=== PATIENT | female | born 1965 | race Two or more races ===

== ENCOUNTER 2019-07-25 16:32 | Emergency (ER) | payer BC ==
[~2019-07-25] VITALS: Ht 162.6 cm; Wt 113.4 kg
[2019-07-25 18:05] LABS: Basophils # (auto) 0 uL; Basophils % (auto) 0.4 % (0.0-2.0); Eosinophils # (auto) 0.2 uL; Eosinophils % (auto) 3.4 % (0.0-7.0); Hematocrit 43.9 % (36.0-46.0); Hemoglobin 14.3 g/dL (12.2-16.2); Lymphocytes # (auto) 0.8 uL; Lymphocytes % (auto) 14.6 % (10.0-50.0); Mean Corpuscular Hemoglobin 29.6 pg (28.0-32.0); Mean Corpuscular Hgb Conc. 32.6 g/dL (32.0-36.0); Mean Corpuscular Volume 90.8 fL (80.0-100.0); Monocytes # (auto) 0.5 uL; Monocytes % (auto) 8.4 % (0.0-12.0); Neutrophils % (auto) 73.2 % (37.0-80.0); Nucleated Red Blood Cells % 0.1 %; Platelet Count (auto) 200 10^3/uL (140-450); Red Blood Cells 4.83 10^6/uL (4.0-5.20); Red Cell Distribution Width 15.1 % (11.8-14.3); White Blood Cell 5.5 10^3/uL (4.4-10.8)
[2019-07-25 18:15] LABS: INR 2.35 (0.9-1.15)
[2019-07-25 18:29] LABS: Alanine Aminotransferase 26 U/L (13-56); Albumin 3.5 g/dL (3.4-5.0); Anion Gap 6 (5-15); Aspartate Aminotransferase 27 U/L (15-37); BUN/Creatinine Ratio 13.2; Blood Urea Nitrogen 12 mg/dL (7-18); Calcium 8.7 mg/dL (8.5-10.1); Carbon Dioxide 31 mmol/L (21-32); Chloride 106 mmol/L (98-107); GFR African American 83 mL/min; GFR Non-African American 69 mL/min; Glucose 95 mg/dL (74-106); Magnesium 1.9 mg/dL (1.6-2.6); Sodium 143 mmol/L (136-145)
[2019-07-25 18:31] LABS: Urine Bacteria FEW /hpf (None Seen); Urine Blood 1+ /uL (Negative); Urine Hyaline Cast FEW /lpf (0 - 2); Urine Mucus FEW (None Seen); Urine Specific Gravity 1.019 (1.001-1.035); Urine WBC 55 /hpf (0 - 5)
[2019-07-25 18:34] LABS: Alkaline Phosphatase 102 U/L (45-117); Bilirubin, Total 0.5 mg/dL (0.2-1.0); Total Protein 8.2 g/dL (6.4-8.2)
[2019-07-25] MEDS ORDERED: SODIUM CHLORIDE 0.9% 1,000 ML IV ONE (18:45)
[2019-07-25] MEDS ORDERED: ONDANSETRON HCL 4 MG/2 ML VIAL IV ONE (18:45)
[2019-07-25] MEDS ORDERED: cefTRIAXone 1GM/50ML D5W 50 ML IV ONE (19:15)
[2019-07-25 20:33] VITALS: BP 105/35
== END 2019-07-25 20:50 | disposition home or self-care (01) ==
LOC: ER 16:32
DX: N39.0 Urinary tract infection, site not specified (principal); R11.2 Nausea with vomiting, unspecified; I10 Essential (primary) hypertension; Z86.73 Personal history of transient ischemic attack (TIA), and cerebral infarction without residual deficits; Z90.710 Acquired absence of both cervix and uterus; Z88.8 Allergy status to other drugs, medicaments and biological substances; Z91.040 Latex allergy status
CPT/HCPCS: 36415; 70450; 71046; 80053; 81001; 83690; 83735; 84484; 85025; 85610; 96361; 96365; 96375; 99284; J0696; J2405; J7030

== ENCOUNTER 2019-12-31 08:15 | Emergency (ER) | payer BC ==
[~2019-12-31] VITALS: Ht 160 cm; Wt 113.4 kg
[2019-12-31] MEDS ORDERED: IBUPROFEN 600 MG TAB PO ONE (08:45)
[2019-12-31 10:01] LABS: Basophils # (auto) 0 uL; Basophils % (auto) 0.2 % (0.0-2.0); Eosinophils # (auto) 0.1 uL; Eosinophils % (auto) 0.7 % (0.0-7.0); Hemoglobin 14.1 g/dL (12.2-16.2); Lymphocytes # (auto) 0.4 uL; Lymphocytes % (auto) 3.4 % (10.0-50.0); Mean Corpuscular Hemoglobin 30.1 pg (28.0-32.0); Mean Corpuscular Hgb Conc. 33.5 g/dL (32.0-36.0); Mean Corpuscular Volume 89.7 fL (80.0-100.0); Monocytes # (auto) 0.7 uL; Monocytes % (auto) 5.7 % (0.0-12.0); Neutrophils # (auto) 10.7 uL; Platelet Count (auto) 175 10^3/uL (140-450); Red Blood Cells 4.68 10^6/uL (4.0-5.20); Red Cell Distribution Width 14.9 % (11.8-14.3); White Blood Cell 11.9 10^3/uL (4.4-10.8)
[2019-12-31 10:17] LABS: Albumin 3.6 g/dL (3.4-5.0); Anion Gap 6 (5-15); Blood Urea Nitrogen 14 mg/dL (7-18); Calcium 8.9 mg/dL (8.5-10.1); Carbon Dioxide 28 mmol/L (21-32); Chloride 107 mmol/L (98-107); Glucose 105 mg/dL (74-106); Sodium 141 mmol/L (136-145)
[2019-12-31 10:20] LABS: Urine Bacteria NONE SEEN /hpf (None Seen); Urine Blood 3+ /uL (Negative); Urine Specific Gravity 1.015 (1.001-1.035); Urine WBC 405 /hpf (0 - 5); Urine WBC Clumps PRESENT /hpf (None Seen)
[2019-12-31 10:23] LABS: Alanine Aminotransferase 23 U/L (13-56); Alkaline Phosphatase 93 U/L (45-117); Aspartate Aminotransferase 28 U/L (15-37); BUN/Creatinine Ratio 18.4; Bilirubin, Total 0.5 mg/dL (0.2-1.0); GFR African American 102 mL/min; GFR Non-African American 84 mL/min
[2019-12-31] MEDS ORDERED: SODIUM CHLORIDE 0.9% 1,000 ML IV ONE (10:39)
[2019-12-31] MEDS ORDERED: HYDROmorphone HCL 2 MG/ML VL IV ONE (10:45)
[2019-12-31] MEDS ORDERED: PROMETHAZINE HCL 25 MG/ML 1ML IV PRN (10:45)
[2019-12-31] MEDS ORDERED: IOHEXOL 300 MG/ML 100ML BOTTLE IJ ONE (10:48)
[2019-12-31 11:17] LABS: Magnesium 1.7 mg/dL (1.6-2.6)
[2019-12-31 11:26] LABS: INR 3.71 (0.9-1.15); Partial Thromboplastin Time 48.5 sec (23.64-32.05)
[2019-12-31 12:49] VITALS: BP 166/41
[2019-12-31] MEDS ORDERED: cefTRIAXone SOD 1,000 MG VL ONE (13:54)
[2019-12-31] MEDS ORDERED: cefTRIAXone 1GM/50ML D5W 50 ML IV ONE (14:00)
[2019-12-31] MEDS ORDERED: ONDANSETRON ODT 4 MG TAB PO ONE ×2 (14:20→14:30)
== END 2019-12-31 14:23 | disposition home or self-care (01) ==
LOC: ER 08:15
DX: T45.511A Poisoning by anticoagulants, accidental (unintentional), initial encounter (principal); N20.0 Calculus of kidney; N39.0 Urinary tract infection, site not specified; K62.5 Hemorrhage of anus and rectum; M19.90 Unspecified osteoarthritis, unspecified site; Z95.4 Presence of other heart-valve replacement; Z91.040 Latex allergy status; Z86.73 Personal history of transient ischemic attack (TIA), and cerebral infarction without residual deficits; Z90.710 Acquired absence of both cervix and uterus; Y92.89 Other specified places as the place of occurrence of the external cause
CPT/HCPCS: 36415; 71046; 74177; 80053; 81001; 83690; 83735; 84484; 85025; 85610; 85730; 93005; 96365; 96375; 99284; J0696; J1170; J2550; J7030; Q0162; Q9967

== ENCOUNTER 2020-01-29 14:06 | Emergency (ER) | payer BC ==
[~2020-01-29] VITALS: Ht 162.6 cm; Wt 109.8 kg
[2020-01-29 15:47] VITALS: BP 136/67
[2020-01-29] MEDS ORDERED: ACETAMINOPHEN 325 MG TAB PO ONE (17:00)
== END 2020-01-29 18:01 | disposition home or self-care (01) ==
LOC: ER 14:08
DX: S93.401A Sprain of unspecified ligament of right ankle, initial encounter (principal); M79.642 Pain in left hand; I10 Essential (primary) hypertension; M19.90 Unspecified osteoarthritis, unspecified site; Z86.73 Personal history of transient ischemic attack (TIA), and cerebral infarction without residual deficits; Z90.710 Acquired absence of both cervix and uterus; Z91.040 Latex allergy status; Z88.8 Allergy status to other drugs, medicaments and biological substances; W19.XXXA Unspecified fall, initial encounter; Y93.89 Activity, other specified; Y99.8 Other external cause status; Y92.511 Restaurant or cafe as the place of occurrence of the external cause
CPT/HCPCS: 73130; 73610

== ENCOUNTER 2020-11-21 09:39 | Inpatient (IN) | payer BC ==
[~2020-11-21] VITALS: Ht 162.6 cm; Wt 109.7 kg
[2020-11-21] MEDS ORDERED: MIDAZOLAM DRIP 50 mg/50mL 50 ML IV ONE (09:44)
[2020-11-21] MEDS: MIDAZOLAM DRIP 50 mg/50mL 50 ML IV SCH (11:00)
[2020-11-21] MEDS ORDERED: fentaNYL Drip 2500mCg/250mlNS 250 ML IV ONE (11:14)
[2020-11-21] MEDS ORDERED: NOREPINEPHRINE 8 MG/250ML KIT 250 ML IV ONE ×2 (11:31→12:36)
[2020-11-21 11:37] VITALS: BP 115/65
[2020-11-21] MEDS: fentaNYL Drip 2500mCg/250mlNS 250 ML IV SCH (11:37)
[2020-11-21] MEDS ORDERED: cefTRIAXone 1GM/50ML D5W 50 ML IV ONE ×2 (11:51→12:00)
[2020-11-21] MEDS ORDERED: AZITHROMYCIN 500MG/ 250ML 250 ML IV ONE ×2 (11:51→12:00)
[2020-11-21] MEDS ORDERED: DexAMETHasone SOD PHOS 10MG/1ML VIAL INJ ONE (11:52)
[2020-11-21 11:55] LABS: Hematocrit 34.1 % (36.0-46.0); Hemoglobin 11.4 g/dL (12.2-16.2); Mean Corpuscular Hemoglobin 30.5 pg (28.0-32.0); Mean Corpuscular Hgb Conc. 33.3 g/dL (32.0-36.0); Mean Corpuscular Volume 91.7 fL (80.0-100.0); Platelet Count (auto) 340 10^3/uL (140-450); Red Blood Cells 3.73 10^6/uL (4.0-5.20); Red Cell Distribution Width 14.9 % (11.8-14.3); White Blood Cell 15.9 10^3/uL (4.4-10.8)
[2020-11-21] MEDS ORDERED: DexAMETHasone SOD PHOS 10MG/1ML VIAL INJ IV ONE (12:00)
[2020-11-21 12:10] LABS: Basophils % (manual) 0 (0.0-2.0); Blast Cells 0; Eosinophils % (manual) 0 (0-7); Promyelocytes % 0; Reactive Lymphocytes 0
[2020-11-21 12:14] LABS: Partial Thromboplastin Time 57.6 sec (23.0-31.2)
[2020-11-21 12:20] LABS: INR > 8.0 (0.9-1.15)
[2020-11-21 12:30] LABS: Lactic Acid w/Reflex 2.8 mmol/L (0.4-2.0)
[2020-11-21 13:09] LABS: Albumin 2.1 g/dL (3.4-5.0); Calcium 7.4 mg/dL (8.5-10.1); Magnesium 1.8 mg/dL (1.6-2.6); Potassium 3.4 mmol/L (3.5-5.1)
[2020-11-21 13:19] LABS: Urine WBC None Seen /hpf (0 - 5)
[2020-11-21 13:22] LABS: BUN/Creatinine Ratio 12.7; Bilirubin, Total 0.4 mg/dL (0.2-1.0); Total Protein 6.4 g/dL (6.4-8.2)
[2020-11-21] MEDS ORDERED: MORPHINE SULF INJ 2 MG/ML SYRINGE 1ML IV PRN ×2 (13:30→14:00)
[2020-11-21] MEDS ORDERED: NITROGLYCERIN 0.4 MG SL TAB SL PRN (13:30)
[2020-11-21 13:35] LABS: Urine Amorphous Crystal FEW /hpf (None Seen); Urine Bacteria FEW /hpf (None Seen); Urine Blood 2+ /uL (Negative); Urine Mucus FEW (None Seen); Urine Specific Gravity 1.009 (1.001-1.035)
[2020-11-21] MEDS: NOREPINEPHRINE 8 MG/250ML KIT 250 ML IV SCH (13:40)
[2020-11-21] MEDS: POTASSIUM CHL 20MEQ/100ML 100 ML IV SCH ×2 (14:00→14:09)
[2020-11-21] MEDS ORDERED: REMDESIVIR PER PHARMACY 0 ML IV SCH (14:00)
[2020-11-21] MEDS ORDERED: ALBUTEROL SULF HFA 90MCG INH 200DOSE IN PRN (14:00)
[2020-11-21 14:05] LABS: Band Neutrophils % (manual) 10; Lymphocytes % (manual) 3 (10.0-50.0); Metamyelocytes % 4; Monocytes % (manual) 4 (0-12); Myelocytes % 1
[2020-11-21] MEDS: FAMOTIDINE (10MG/ML) 2ML VL IV SCH (14:12)
[2020-11-21] MEDS: CLINDAMYCIN 600MG IV 50 ML IV SCH ×2 (14:13→21:54)
[2020-11-21] MEDS ORDERED: POTASSIUM CHLORIDE 60 MEQ, LIDOCAINE 1% (LOCAL ANESTH.) 6 ML in SODIUM CHL 0.9% 500 ML IV ONE (14:15)
[2020-11-21 17:15] VITALS: BP 121/75
[2020-11-21 17:30] VITALS: BP 127/80
[2020-11-21 18:10] VITALS: BP 124/78
[2020-11-21 18:45] VITALS: BP 125/82
[2020-11-21 19:35] LABS: Alcohol, Urine < 3.0 mg/dL (0-10); Amphetamine Screen, Urine NEGATIVE (NEGATIVE); Barbiturate Scree,Urine NEGATIVE (NEGATIVE); Benzodiazephine Screen, Urine POSITIVE (NEGATIVE); Cannabinoid Screen, Urine NEGATIVE (NEGATIVE); Cocaine Screen, Urine NEGATIVE (NEGATIVE); Opiate Scree,Urine NEGATIVE (NEGATIVE); Phencyclidine Screen, Urine NEGATIVE (NEGATIVE)
[2020-11-21 19:51] VITALS: BP 126/77
[2020-11-21] MEDS ORDERED: ENOXAPARIN SOD 40 MG/0.4 ML SYRINGE SC SCH (22:00)
[2020-11-21] MEDS: BUDESONIDE (INHALATION) 180 MCG IH IN SCH (22:00)
[2020-11-22] VITALS (8 sets, daily range): BP systolic 105–136; BP diastolic 55–78
[2020-11-22] MEDS ORDERED: DOPamine 1600MCG/ML D5W 250 ML IV ONE (01:36)
[2020-11-22] MEDS: DOPamine 1600MCG/ML D5W 250 ML IV SCH ×2 (01:42→14:14)
[2020-11-22] MEDS: MIDAZOLAM DRIP 50 mg/50mL 50 ML IV SCH (01:43)
[2020-11-22] MEDS: FAMOTIDINE (10MG/ML) 2ML VL IV SCH (02:15)
[2020-11-22 05:41] LABS: Hematocrit 34.9 % (36.0-46.0); Hemoglobin 11.5 g/dL (12.2-16.2); Mean Corpuscular Hemoglobin 29.9 pg (28.0-32.0); Mean Corpuscular Hgb Conc. 33.1 g/dL (32.0-36.0); Mean Corpuscular Volume 90.2 fL (80.0-100.0); Platelet Count (auto) 348 10^3/uL (140-450); Red Blood Cells 3.86 10^6/uL (4.0-5.20); Red Cell Distribution Width 15.1 % (11.8-14.3); White Blood Cell 12.6 10^3/uL (4.4-10.8)
[2020-11-22 06:07] LABS: Albumin 2.4 g/dL (3.4-5.0); Calcium 7.9 mg/dL (8.5-10.1); Potassium 4.1 mmol/L (3.5-5.1)
[2020-11-22 06:08] LABS: Band Neutrophils % (manual) 0; Basophils % (manual) 0 (0.0-2.0); Blast Cells 0; Eosinophils % (manual) 0 (0-7); Myelocytes % 0; Promyelocytes % 0; Reactive Lymphocytes 0
[2020-11-22] MEDS: CLINDAMYCIN 600MG IV 50 ML IV SCH ×3 (06:11→22:05)
[2020-11-22 06:14] LABS: BUN/Creatinine Ratio 13.1; Bilirubin, Total 0.4 mg/dL (0.2-1.0); Total Protein 7.1 g/dL (6.4-8.2)
[2020-11-22] MEDS: fentaNYL Drip 2500mCg/250mlNS 250 ML IV SCH (06:20)
[2020-11-22 09:00] LABS: Lymphocytes % (manual) 6 (10.0-50.0); Metamyelocytes % 2; Monocytes % (manual) 7 (0-12)
[2020-11-22] MEDS: BUDESONIDE (INHALATION) 180 MCG IH IN SCH ×2 (10:00→22:00)
[2020-11-22] MEDS: ZINC SULFATE 220mg CAP or TAB PO SCH (10:06)
[2020-11-22] MEDS: ASCORBIC ACID 1,000 MG TAB PO SCH (10:06)
[2020-11-22] MEDS: DexAMETHasone SOD PHOS 10MG/1ML VIAL INJ IV SCH (10:06)
[2020-11-22] MEDS: levoFLOXacin 500MG 100 ML IV SCH (10:06)
[2020-11-22] MEDS: CHOLECALCIFEROL (VITD3) 2,000 UNIT CAP PO SCH (10:07)
[2020-11-22] MEDS ORDERED: diphenhdrAMINE HCL 50 MG/1 ML VL IV PRN (10:30)
[2020-11-22 10:59] LABS: INR > 8.0 (0.9-1.15)
[2020-11-22] MEDS ORDERED: PHYTONADIONE (VIT K)10 MG/ML 1ML VIAL IV ONE (11:15)
[2020-11-22] MEDS ORDERED: PANTOPRAZOLE 40 MG/10 ML VIAL INJ IV ONE (12:30)
[2020-11-22 12:49] LABS: Amylase 60 U/L (25-115); Lipase 149 U/L (73-393)
[2020-11-22] MEDS: NOREPINEPHRINE 8 MG/250ML KIT 250 ML IV SCH (13:15)
[2020-11-22] MEDS ORDERED: AMIODARONE HCL (50 MG/ ML) 3 ML VIAL IV ONE (13:43)
[2020-11-22] MEDS ORDERED: AMIODARONE HCL 150 MG in D5W 5% 100 ML IV ONE (13:45)
[2020-11-22] MEDS ORDERED: AMIODARONE 450mg/250ml AE 250 ML IV SCH (14:00)
[2020-11-22] MEDS ORDERED: MAGNESIUM SULFATE 1GM/100ML 100 ML IV ONE (14:00)
[2020-11-22] MEDS ORDERED: EPINEPHrine HCL 1 MG/10 ML SYRG IV ONE (14:09)
[2020-11-22] MEDS ORDERED: REMDESIVIR 200 MG in NS 210ml LOADING DOSE ADULT IV ONE (15:00)
[2020-11-22] MEDS: AMIODARONE 450mg/250ml AE 250 ML IV SCH (20:18)
[2020-11-22] MEDS ORDERED: LIDOCAINE 50MG/5ML INJ 5ML SYRINGE IV ONE (21:45)
[2020-11-22 21:50] LABS: Hematocrit 32.2 % (36.0-46.0); Hemoglobin 10.6 g/dL (12.2-16.2)
[2020-11-22] MEDS: PANTOPRAZOLE 40 MG/10 ML VIAL INJ IV SCH (22:07)
[2020-11-22 22:42] LABS: Magnesium 1.8 mg/dL (1.6-2.6); Phosphorus 4.2 mg/dL (2.5-4.90)
[2020-11-23] MEDS: ATORVASTATIN 20 MG TAB PO SCH
[2020-11-23] MEDS: DOPamine 1600MCG/ML D5W 250 ML IV SCH ×2 (02:15→14:30)
[2020-11-23 03:04] LABS: Hematocrit 32.9 % (36.0-46.0); Hemoglobin 10.9 g/dL (12.2-16.2)
[2020-11-23] MEDS: fentaNYL Drip 2500mCg/250mlNS 250 ML IV SCH (03:56)
[2020-11-23] MEDS: CLINDAMYCIN 600MG IV 50 ML IV SCH ×3 (06:04→22:08)
[2020-11-23 07:16] VITALS: BP 133/72
[2020-11-23 07:23] LABS: INR 1.29 (0.9-1.15); Partial Thromboplastin Time 31.4 sec (23.0-31.2)
[2020-11-23 07:39] LABS: Albumin 2.6 g/dL (3.4-5.0); BUN/Creatinine Ratio 15.4; Bilirubin, Total 1.1 mg/dL (0.2-1.0); Calcium 8.3 mg/dL (8.5-10.1); Magnesium 1.9 mg/dL (1.6-2.6); Total Protein 7.1 g/dL (6.4-8.2)
[2020-11-23] MEDS: MIDAZOLAM DRIP 50 mg/50mL 50 ML IV SCH (08:53)
[2020-11-23] MEDS: DexAMETHasone SOD PHOS 10MG/1ML VIAL INJ IV SCH (08:54)
[2020-11-23] MEDS: levoFLOXacin 500MG 100 ML IV SCH (08:54)
[2020-11-23] MEDS: PANTOPRAZOLE 40 MG/10 ML VIAL INJ IV SCH ×2 (08:59→22:00)
[2020-11-23] MEDS: CHOLECALCIFEROL (VITD3) 2,000 UNIT CAP PO SCH (09:03)
[2020-11-23] MEDS: ZINC SULFATE 220mg CAP or TAB PO SCH (09:03)
[2020-11-23] MEDS: ASCORBIC ACID 1,000 MG TAB PO SCH (09:03)
[2020-11-23] MEDS: BUDESONIDE (INHALATION) 180 MCG IH IN SCH (10:00)
[2020-11-23 10:42] VITALS: BP 110/89
[2020-11-23] MEDS: AMIODARONE 450mg/250ml AE 250 ML IV SCH (11:00)
[2020-11-23] MEDS ORDERED: CLOPIDOGREL BISULFATE 75 MG TAB PO SCH (11:30)
[2020-11-23] MEDS: HEPARIN DRIP/D5W 100UNITS/ML 250 ML IV SCH (12:30)
[2020-11-23] MEDS ORDERED: CLOPIDOGREL 300 MG TAB PO SCH (12:30)
[2020-11-23] MEDS: NOREPINEPHRINE 8 MG/250ML KIT 250 ML IV SCH (13:15)
[2020-11-23 14:31] LABS: Hematocrit 32.3 % (36.0-46.0); Hemoglobin 10.7 g/dL (12.2-16.2)
[2020-11-23] MEDS: REMDESIVIR 100 MG in SODIUM CHL 0.9% 250 ML IV SCH (15:00)
[2020-11-23 18:10] VITALS: BP 137/69
[2020-11-23 19:19] LABS: Hematocrit 33.1 % (36.0-46.0); Hemoglobin 11.1 g/dL (12.2-16.2)
[2020-11-23 21:53] LABS: INR 1.29 (0.9-1.15)
[2020-11-23 22:40] VITALS: BP 142/77
[2020-11-23] MEDS ORDERED: HEPARIN SODIUM (PORCINE) 5000 UNITS/ML 1ML VIAL ONE (22:45)
[2020-11-23 23:50] VITALS: BP 132/73
[2020-11-24] VITALS (95 sets, daily range): BP systolic 66–175; BP diastolic 31–115
[2020-11-24 00:03] LABS: Hematocrit 33.5 % (36.0-46.0); Hemoglobin 11.2 g/dL (12.2-16.2)
[2020-11-24 01:58] LABS: Potassium 3.9 mmol/L (3.5-5.1)
[2020-11-24] MEDS: AMIODARONE 450mg/250ml AE 250 ML IV SCH ×2 (02:00→17:00)
[2020-11-24 02:01] LABS: Magnesium 1.5 mg/dL (1.6-2.6)
[2020-11-24] MEDS ORDERED: MAGNESIUM SULFATE 1GM/100ML 200 ML IV ONE (02:34)
[2020-11-24] MEDS: MAGNESIUM SULFATE 1GM/100ML 100 ML IV SCH ×2 (02:45→04:25)
[2020-11-24] MEDS: DOPamine 1600MCG/ML D5W 250 ML IV SCH ×3 (02:45→16:54)
[2020-11-24] MEDS: fentaNYL Drip 2500mCg/250mlNS 250 ML IV SCH ×2 (03:00→06:05)
[2020-11-24] MEDS: MIDAZOLAM DRIP 50 mg/50mL 50 ML IV SCH ×5 (04:00→22:00)
[2020-11-24 05:39] LABS: Basophils # (auto) 0 10 ^3/uL (0-0.2); Basophils % (auto) 0.1 % (0.0-2.0); Eosinophils # (auto) 0 10 ^3/uL (0-0.8); Hematocrit 31.2 % (36.0-46.0); Hemoglobin 10.7 g/dL (12.2-16.2); Lymphocytes # (auto) 0.9 10 ^3/uL (0.4-5.4); Lymphocytes % (auto) 10.7 % (10.0-50.0); Mean Corpuscular Hemoglobin 30.4 pg (28.0-32.0); Mean Corpuscular Hgb Conc. 34.3 g/dL (32.0-36.0); Mean Corpuscular Volume 88.8 fL (80.0-100.0); Monocytes # (auto) 0.8 10 ^3/uL (0-1.3); Neutrophils # (auto) 6.9 10 ^3/uL (1.6-8.6); Neutrophils % (auto) 80.2 % (37.0-80.0); Platelet Count (auto) 362 10^3/uL (140-450); Red Blood Cells 3.51 10^6/uL (4.0-5.20); Red Cell Distribution Width 14.7 % (11.8-14.3); White Blood Cell 8.6 10^3/uL (4.4-10.8)
[2020-11-24 05:52] LABS: Albumin 2.7 g/dL (3.4-5.0); Calcium 8.6 mg/dL (8.5-10.1); Potassium 3.8 mmol/L (3.5-5.1)
[2020-11-24 05:53] LABS: BUN/Creatinine Ratio 18.8
[2020-11-24 05:58] LABS: Bilirubin, Total 0.9 mg/dL (0.2-1.0)
[2020-11-24] MEDS: CLINDAMYCIN 600MG IV 50 ML IV SCH ×3 (06:03→22:36)
[2020-11-24 08:40] LABS: INR 1.3 (0.9-1.15)
[2020-11-24 08:42] LABS: Partial Thromboplastin Time 124.7 sec (23.0-31.2)
[2020-11-24] MEDS: PANTOPRAZOLE 40 MG/10 ML VIAL INJ IV SCH ×2 (09:59→22:00)
[2020-11-24] MEDS: DexAMETHasone SOD PHOS 10MG/1ML VIAL INJ IV SCH (09:59)
[2020-11-24] MEDS: ASCORBIC ACID 1,000 MG TAB PO SCH (09:59)
[2020-11-24] MEDS: ZINC SULFATE 220mg CAP or TAB PO SCH (09:59)
[2020-11-24] MEDS: levoFLOXacin 500MG 100 ML IV SCH (09:59)
[2020-11-24] MEDS: CHOLECALCIFEROL (VITD3) 2,000 UNIT CAP PO SCH (10:00)
[2020-11-24] MEDS ORDERED: CLOPIDOGREL BISULFATE 75 MG TAB PO SCH (10:00)
[2020-11-24] MEDS: BUDESONIDE (INHALATION) 180 MCG IH IN SCH (10:00)
[2020-11-24 10:43] LABS: Hematocrit 34.5 % (36.0-46.0); Hemoglobin 11.5 g/dL (12.2-16.2)
[2020-11-24] MEDS: HEPARIN DRIP/D5W 100UNITS/ML 250 ML IV SCH (12:30)
[2020-11-24] MEDS: NOREPINEPHRINE 8 MG/250ML KIT 250 ML IV SCH (13:15)
[2020-11-24 15:44] LABS: INR 1.24 (0.9-1.15); Partial Thromboplastin Time 47.2 sec (23.0-31.2)
[2020-11-24] MEDS: REMDESIVIR 100 MG in SODIUM CHL 0.9% 250 ML IV SCH (16:53)
[2020-11-24 22:33] LABS: INR 1.25 (0.9-1.15); Partial Thromboplastin Time 57.2 sec (23.0-31.2)
[2020-11-24] MEDS: ATORVASTATIN 20 MG TAB PO SCH (22:37)
[2020-11-25] VITALS (99 sets, daily range): BP systolic 76–191; BP diastolic 31–172
[2020-11-25] MEDS: AMIODARONE 450mg/250ml AE 250 ML IV SCH (01:09)
[2020-11-25] MEDS: fentaNYL Drip 2500mCg/250mlNS 250 ML IV SCH ×2 (01:12→22:32)
[2020-11-25] MEDS: MIDAZOLAM DRIP 50 mg/50mL 50 ML IV SCH ×6 (02:00→22:33)
[2020-11-25 05:12] LABS: Basophils # (auto) 0 10 ^3/uL (0-0.2); Basophils % (auto) 0.2 % (0.0-2.0); Eosinophils # (auto) 0 10 ^3/uL (0-0.8); Hematocrit 35.9 % (36.0-46.0); Hemoglobin 12.2 g/dL (12.2-16.2); Lymphocytes # (auto) 0.9 10 ^3/uL (0.4-5.4); Lymphocytes % (auto) 11.7 % (10.0-50.0); Mean Corpuscular Hemoglobin 29.6 pg (28.0-32.0); Mean Corpuscular Hgb Conc. 33.8 g/dL (32.0-36.0); Mean Corpuscular Volume 87.5 fL (80.0-100.0); Monocytes # (auto) 0.9 10 ^3/uL (0-1.3); Monocytes % (auto) 11.7 % (0.0-12.0); Neutrophils # (auto) 6.2 10 ^3/uL (1.6-8.6); Neutrophils % (auto) 76.4 % (37.0-80.0); Nucleated Red Blood Cells % 0.1 %; Platelet Count (auto) 431 10^3/uL (140-450); Red Blood Cells 4.11 10^6/uL (4.0-5.20); Red Cell Distribution Width 14.9 % (11.8-14.3); White Blood Cell 8.1 10^3/uL (4.4-10.8)
[2020-11-25 05:27] LABS: Albumin 2.8 g/dL (3.4-5.0); Calcium 8.8 mg/dL (8.5-10.1); Potassium 3.7 mmol/L (3.5-5.1)
[2020-11-25 05:31] LABS: BUN/Creatinine Ratio 18.6; Bilirubin, Total 1.3 mg/dL (0.2-1.0); Total Protein 7.8 g/dL (6.4-8.2)
[2020-11-25 05:38] LABS: INR 1.24 (0.9-1.15); Partial Thromboplastin Time 41.9 sec (23.0-31.2)
[2020-11-25] MEDS: CLINDAMYCIN 600MG IV 50 ML IV SCH ×3 (05:54→22:26)
[2020-11-25] MEDS: HEPARIN DRIP/D5W 100UNITS/ML 250 ML IV SCH ×3 (06:03→23:54)
[2020-11-25] MEDS: levoFLOXacin 500MG 100 ML IV SCH (10:00)
[2020-11-25] MEDS: ASCORBIC ACID 1,000 MG TAB PO SCH (10:00)
[2020-11-25] MEDS: ZINC SULFATE 220mg CAP or TAB PO SCH (10:00)
[2020-11-25] MEDS: DOPamine 1600MCG/ML D5W 250 ML IV SCH ×2 (10:00→23:52)
[2020-11-25] MEDS: CHOLECALCIFEROL (VITD3) 2,000 UNIT CAP PO SCH (10:00)
[2020-11-25] MEDS: PANTOPRAZOLE 40 MG/10 ML VIAL INJ IV SCH ×2 (10:00→22:00)
[2020-11-25] MEDS: DexAMETHasone SOD PHOS 10MG/1ML VIAL INJ IV SCH (10:00)
[2020-11-25 12:42] LABS: INR 1.22 (0.9-1.15); Partial Thromboplastin Time 65.1 sec (23.0-31.2)
[2020-11-25] MEDS: NOREPINEPHRINE 8 MG/250ML KIT 250 ML IV SCH (13:15)
[2020-11-25] MEDS: REMDESIVIR 100 MG in SODIUM CHL 0.9% 250 ML IV SCH (16:30)
[2020-11-25] MEDS ORDERED: Jevity 1.2 Cal/Fiber 1 Liter GT SCH (17:30)
[2020-11-25 20:02] LABS: INR 1.24 (0.9-1.15)
[2020-11-25 20:12] LABS: Partial Thromboplastin Time 78.4 sec (23.0-31.2)
[2020-11-25] MEDS: AMIODARONE HCL 200 MG TAB PO SCH (22:26)
[2020-11-25] MEDS: ATORVASTATIN 20 MG TAB PO SCH (22:32)
[2020-11-25] MEDS: MAGNESIUM OXIDE 400 MG TAB PO SCH (22:32)
[2020-11-26] VITALS (99 sets, daily range): BP systolic 88–136; BP diastolic 50–88
[2020-11-26 01:47] LABS: INR 1.24 (0.9-1.15); Partial Thromboplastin Time 66.9 sec (23.0-31.2)
[2020-11-26 04:44] LABS: Basophils # (auto) 0 10 ^3/uL (0-0.2); Basophils % (auto) 0.1 % (0.0-2.0); Eosinophils # (auto) 0 10 ^3/uL (0-0.8); Hematocrit 36.9 % (36.0-46.0); Hemoglobin 12.4 g/dL (12.2-16.2); Lymphocytes # (auto) 1.1 10 ^3/uL (0.4-5.4); Lymphocytes % (auto) 12.4 % (10.0-50.0); Mean Corpuscular Hemoglobin 29.6 pg (28.0-32.0); Mean Corpuscular Hgb Conc. 33.7 g/dL (32.0-36.0); Mean Corpuscular Volume 87.8 fL (80.0-100.0); Monocytes % (auto) 10.7 % (0.0-12.0); Neutrophils % (auto) 76.8 % (37.0-80.0); Nucleated Red Blood Cells % 0.1 %; Platelet Count (auto) 451 10^3/uL (140-450); Red Cell Distribution Width 14.9 % (11.8-14.3); White Blood Cell 9.2 10^3/uL (4.4-10.8)
[2020-11-26 05:03] LABS: Albumin 2.8 g/dL (3.4-5.0)
[2020-11-26 05:10] LABS: Bilirubin, Total 1.2 mg/dL (0.2-1.0); Calcium 8.9 mg/dL (8.5-10.1); Total Protein 7.7 g/dL (6.4-8.2)
[2020-11-26] MEDS: CLINDAMYCIN 600MG IV 50 ML IV SCH ×3 (06:00→22:00)
[2020-11-26] MEDS: DOPamine 1600MCG/ML D5W 250 ML IV SCH ×2 (06:00→21:00)
[2020-11-26] MEDS: MIDAZOLAM DRIP 50 mg/50mL 50 ML IV SCH ×3 (08:00→21:00)
[2020-11-26 09:13] LABS: INR 1.2 (0.9-1.15); Partial Thromboplastin Time 59.4 sec (23.0-31.2)
[2020-11-26] MEDS: MAGNESIUM OXIDE 400 MG TAB PO SCH ×2 (10:00→22:00)
[2020-11-26] MEDS: CHOLECALCIFEROL (VITD3) 2,000 UNIT CAP PO SCH (10:00)
[2020-11-26] MEDS: POTASSIUM EFFERVESENT TAB 25 MEQ GT SCH (10:00)
[2020-11-26] MEDS: DexAMETHasone SOD PHOS 10MG/1ML VIAL INJ IV SCH (10:00)
[2020-11-26] MEDS: levoFLOXacin 500MG 100 ML IV SCH (10:00)
[2020-11-26] MEDS: AMIODARONE HCL 200 MG TAB PO SCH ×2 (10:00→22:00)
[2020-11-26] MEDS: PANTOPRAZOLE 40 MG/10 ML VIAL INJ IV SCH ×2 (10:00→22:00)
[2020-11-26] MEDS: ZINC SULFATE 220mg CAP or TAB PO SCH (10:00)
[2020-11-26] MEDS: ASCORBIC ACID 1,000 MG TAB PO SCH (10:00)
[2020-11-26] MEDS: fentaNYL Drip 2500mCg/250mlNS 250 ML IV SCH ×2 (13:00→22:55)
[2020-11-26] MEDS: NOREPINEPHRINE 8 MG/250ML KIT 250 ML IV SCH (13:15)
[2020-11-26] MEDS: HEPARIN DRIP/D5W 100UNITS/ML 250 ML IV SCH (15:00)
[2020-11-26 15:01] LABS: INR 1.21 (0.9-1.15); Partial Thromboplastin Time 57.2 sec (23.0-31.2)
[2020-11-26] MEDS: REMDESIVIR 100 MG in SODIUM CHL 0.9% 250 ML IV SCH (16:30)
[2020-11-26] MEDS: ATORVASTATIN 20 MG TAB PO SCH (22:00)
[2020-11-27] VITALS (105 sets, daily range): BP systolic 62–130; BP diastolic 29–85
[2020-11-27] MEDS: MIDAZOLAM DRIP 50 mg/50mL 50 ML IV SCH (03:00)
[2020-11-27] MEDS: DOPamine 1600MCG/ML D5W 250 ML IV SCH ×2 (06:00→14:00)
[2020-11-27] MEDS: CLINDAMYCIN 600MG IV 50 ML IV SCH (06:00)
[2020-11-27 06:19] LABS: Red Cell Distribution Width 15.2 % (11.8-14.3)
[2020-11-27 06:21] LABS: Hematocrit 34.8 % (36.0-46.0); Hemoglobin 11.8 g/dL (12.2-16.2); Mean Corpuscular Hemoglobin 29.8 pg (28.0-32.0); Mean Corpuscular Volume 87.4 fL (80.0-100.0); Platelet Count (auto) 446 10^3/uL (140-450); Red Blood Cells 3.98 10^6/uL (4.0-5.20); White Blood Cell 10.7 10^3/uL (4.4-10.8)
[2020-11-27 06:25] LABS: Basophils % (manual) 0 (0.0-2.0); Blast Cells 0; Eosinophils % (manual) 0 (0-7); Myelocytes % 0; Promyelocytes % 0; Reactive Lymphocytes 0
[2020-11-27 06:32] LABS: INR 1.18 (0.9-1.15); Partial Thromboplastin Time 68.7 sec (23.0-31.2)
[2020-11-27 06:37] LABS: Albumin 2.9 g/dL (3.4-5.0); BUN/Creatinine Ratio 22.2; Bilirubin, Total 1.3 mg/dL (0.2-1.0); Calcium 9.2 mg/dL (8.5-10.1); Total Protein 7.7 g/dL (6.4-8.2)
[2020-11-27 07:25] LABS: Band Neutrophils % (manual) 1; Lymphocytes % (manual) 5 (10.0-50.0); Metamyelocytes % 2; Monocytes % (manual) 9 (0-12)
[2020-11-27] MEDS: CHOLECALCIFEROL (VITD3) 2,000 UNIT CAP PO SCH (10:00)
[2020-11-27] MEDS: PANTOPRAZOLE 40 MG/10 ML VIAL INJ IV SCH ×2 (10:00→22:00)
[2020-11-27] MEDS: ZINC SULFATE 220mg CAP or TAB PO SCH (10:31)
[2020-11-27] MEDS: MAGNESIUM OXIDE 400 MG TAB PO SCH ×2 (10:31→22:05)
[2020-11-27] MEDS: DexAMETHasone SOD PHOS 10MG/1ML VIAL INJ IV SCH (10:31)
[2020-11-27] MEDS: AMIODARONE HCL 200 MG TAB PO SCH ×2 (10:31→22:05)
[2020-11-27] MEDS: ASCORBIC ACID 1,000 MG TAB PO SCH (10:31)
[2020-11-27] MEDS: POTASSIUM EFFERVESENT TAB 25 MEQ GT SCH (10:31)
[2020-11-27] MEDS: levoFLOXacin 500MG 100 ML IV SCH (10:32)
[2020-11-27] MEDS: HEPARIN DRIP/D5W 100UNITS/ML 250 ML IV SCH (13:05)
[2020-11-27] MEDS: NOREPINEPHRINE 8 MG/250ML KIT 250 ML IV SCH (13:15)
[2020-11-27] MEDS ORDERED: PIPERACILLIN-TAZOB 3.375GM 100 ML IV ONE (13:15)
[2020-11-27] MEDS: PIPERACILLIN-TAZOB 3.375GM 100 ML IV SCH ×2 (13:37→22:05)
[2020-11-27] MEDS: ACETAMINOPHEN 325 MG TAB PO PRN (13:52)
[2020-11-27] MEDS: ATORVASTATIN 20 MG TAB PO SCH (22:05)
[2020-11-27] MEDS: fentaNYL Drip 2500mCg/250mlNS 250 ML IV SCH (22:07)
[2020-11-28] VITALS (92 sets, daily range): BP systolic 80–170; BP diastolic 39–95
[2020-11-28 05:03] LABS: Basophils # (auto) 0 10 ^3/uL (0-0.2); Basophils % (auto) 0.3 % (0.0-2.0); Eosinophils # (auto) 0 10 ^3/uL (0-0.8); Hematocrit 36.2 % (36.0-46.0); Lymphocytes # (auto) 1.3 10 ^3/uL (0.4-5.4); Lymphocytes % (auto) 9.5 % (10.0-50.0); Mean Corpuscular Hemoglobin 29.4 pg (28.0-32.0); Mean Corpuscular Hgb Conc. 33.2 g/dL (32.0-36.0); Mean Corpuscular Volume 88.7 fL (80.0-100.0); Monocytes # (auto) 0.9 10 ^3/uL (0-1.3); Monocytes % (auto) 7.1 % (0.0-12.0); Neutrophils % (auto) 83.1 % (37.0-80.0); Platelet Count (auto) 437 10^3/uL (140-450); Red Blood Cells 4.09 10^6/uL (4.0-5.20); White Blood Cell 13.2 10^3/uL (4.4-10.8)
[2020-11-28 05:18] LABS: Potassium 4.6 mmol/L (3.5-5.1)
[2020-11-28 05:26] LABS: INR 1.15 (0.9-1.15)
[2020-11-28 05:27] LABS: BUN/Creatinine Ratio 23.1; Bilirubin, Total 1.1 mg/dL (0.2-1.0); Calcium 9.1 mg/dL (8.5-10.1)
[2020-11-28 05:31] LABS: Partial Thromboplastin Time 75.6 sec (23.0-31.2)
[2020-11-28] MEDS: PIPERACILLIN-TAZOB 3.375GM 100 ML IV SCH ×3 (06:00→21:41)
[2020-11-28] MEDS: DexAMETHasone SOD PHOS 10MG/1ML VIAL INJ IV SCH (10:00)
[2020-11-28] MEDS: ZINC SULFATE 220mg CAP or TAB PO SCH (10:00)
[2020-11-28] MEDS: ASCORBIC ACID 1,000 MG TAB PO SCH (10:00)
[2020-11-28] MEDS: CHOLECALCIFEROL (VITD3) 2,000 UNIT CAP PO SCH (10:00)
[2020-11-28] MEDS: PANTOPRAZOLE 40 MG/10 ML VIAL INJ IV SCH ×2 (10:00→21:38)
[2020-11-28] MEDS: AMIODARONE HCL 200 MG TAB PO SCH ×3 (10:00→22:00)
[2020-11-28] MEDS: MAGNESIUM OXIDE 400 MG TAB PO SCH ×2 (10:00→21:40)
[2020-11-28] MEDS: PHENYLEPHRINE INJ 40 MG in SODIUM CHL 0.9% 250 ML IV SCH (10:15)
[2020-11-28] MEDS: MIDAZOLAM DRIP 50 mg/50mL 50 ML IV SCH (11:00)
[2020-11-28 11:25] LABS: INR 1.13 (0.9-1.15)
[2020-11-28] MEDS: HEPARIN DRIP/D5W 100UNITS/ML 250 ML IV SCH (11:44)
[2020-11-28] MEDS ORDERED: DOPamine 1600MCG/ML D5W 250 ML IV ONE (12:08)
[2020-11-28] MEDS ORDERED: PHENYLEPHRINE IV 250 ML IV SCH (13:00)
[2020-11-28] MEDS: NOREPINEPHRINE 8 MG/250ML KIT 250 ML IV SCH (13:15)
[2020-11-28] MEDS ORDERED: PHENYLEPHRINE IV 250 ML IV ONE (13:54)
[2020-11-28] MEDS ORDERED: PHENYLEPHRINE IV 0 ML IV ONE (17:52)
[2020-11-28 18:42] LABS: INR 1.1 (0.9-1.15); Partial Thromboplastin Time 53.9 sec (23.0-31.2)
[2020-11-28] MEDS: ATORVASTATIN 20 MG TAB PO SCH (21:40)
[2020-11-29] VITALS (58 sets, daily range): BP systolic 82–186; BP diastolic 32–114
[2020-11-29] MEDS: PHENYLEPHRINE INJ 40 MG in SODIUM CHL 0.9% 250 ML IV SCH ×2 (01:00→07:56)
[2020-11-29] MEDS: PIPERACILLIN-TAZOB 3.375GM 100 ML IV SCH ×3 (06:10→20:53)
[2020-11-29 07:27] LABS: Basophils # (auto) 0 10 ^3/uL (0-0.2); Basophils % (auto) 0.1 % (0.0-2.0); Eosinophils # (auto) 0 10 ^3/uL (0-0.8); Nucleated Red Blood Cells % 0.1 %
[2020-11-29 07:31] LABS: Hematocrit 32.1 % (36.0-46.0); Hemoglobin 10.8 g/dL (12.2-16.2); Lymphocytes # (auto) 1.6 10 ^3/uL (0.4-5.4); Lymphocytes % (auto) 9.5 % (10.0-50.0); Mean Corpuscular Hemoglobin 29.6 pg (28.0-32.0); Mean Corpuscular Hgb Conc. 33.6 g/dL (32.0-36.0); Mean Corpuscular Volume 88.3 fL (80.0-100.0); Monocytes # (auto) 1.2 10 ^3/uL (0-1.3); Monocytes % (auto) 7.4 % (0.0-12.0); Neutrophils # (auto) 13.9 10 ^3/uL (1.6-8.6); Platelet Count (auto) 445 10^3/uL (140-450); Red Blood Cells 3.64 10^6/uL (4.0-5.20); Red Cell Distribution Width 15.4 % (11.8-14.3); White Blood Cell 16.8 10^3/uL (4.4-10.8)
[2020-11-29 07:43] LABS: Potassium 4.1 mmol/L (3.5-5.1)
[2020-11-29 07:44] LABS: INR 1.06 (0.9-1.15); Partial Thromboplastin Time 54.1 sec (23.0-31.2)
[2020-11-29 07:50] LABS: BUN/Creatinine Ratio 26.7; Calcium 9.1 mg/dL (8.5-10.1)
[2020-11-29] MEDS: MAGNESIUM OXIDE 400 MG TAB PO SCH ×2 (10:00→20:55)
[2020-11-29] MEDS: DexAMETHasone SOD PHOS 10MG/1ML VIAL INJ IV SCH (10:00)
[2020-11-29] MEDS: AMIODARONE HCL 200 MG TAB PO SCH ×2 (10:00→20:54)
[2020-11-29] MEDS: ZINC SULFATE 220mg CAP or TAB PO SCH (10:00)
[2020-11-29] MEDS: CHOLECALCIFEROL (VITD3) 2,000 UNIT CAP PO SCH (10:00)
[2020-11-29] MEDS: PANTOPRAZOLE 40 MG TAB PO SCH ×2 (10:00→20:53)
[2020-11-29] MEDS: ASCORBIC ACID 1,000 MG TAB PO SCH (10:00)
[2020-11-29] MEDS: HEPARIN DRIP/D5W 100UNITS/ML 250 ML IV SCH ×2 (17:30→20:50)
[2020-11-29] MEDS: ATORVASTATIN 20 MG TAB PO SCH (20:53)
[2020-11-30] VITALS: BP 129/61
[2020-11-30] MEDS: PIPERACILLIN-TAZOB 3.375GM 100 ML IV SCH ×3 (05:31→22:19)
[2020-11-30] MEDS ORDERED: LISI-275 PO (07:07)
[2020-11-30] MEDS ORDERED: METO-169 PO (07:07)
[2020-11-30] MEDS ORDERED: WARF6TAB21 PO (07:07)
[2020-11-30] MEDS: ZINC SULFATE 220mg CAP or TAB PO SCH (08:41)
[2020-11-30] MEDS: AMIODARONE HCL 200 MG TAB PO SCH ×2 (08:41→22:20)
[2020-11-30] MEDS: MAGNESIUM OXIDE 400 MG TAB PO SCH ×2 (08:42→22:21)
[2020-11-30] MEDS: ASCORBIC ACID 1,000 MG TAB PO SCH (08:42)
[2020-11-30] MEDS: DexAMETHasone 4 MG TAB PO SCH (08:42)
[2020-11-30] MEDS: PANTOPRAZOLE 40 MG TAB PO SCH ×2 (08:42→22:21)
[2020-11-30] MEDS: CHOLECALCIFEROL (VITD3) 2,000 UNIT CAP PO SCH (08:43)
[2020-11-30 11:49] LABS: Basophils # (auto) 0 10 ^3/uL (0-0.2); Basophils % (auto) 0.1 % (0.0-2.0); Eosinophils # (auto) 0 10 ^3/uL (0-0.8); Hematocrit 28.7 % (36.0-46.0); Hemoglobin 9.5 g/dL (12.2-16.2); Lymphocytes # (auto) 0.7 10 ^3/uL (0.4-5.4); Lymphocytes % (auto) 5.4 % (10.0-50.0); Mean Corpuscular Hemoglobin 29.5 pg (28.0-32.0); Mean Corpuscular Hgb Conc. 33.1 g/dL (32.0-36.0); Mean Corpuscular Volume 88.9 fL (80.0-100.0); Monocytes % (auto) 7.9 % (0.0-12.0); Neutrophils # (auto) 10.6 10 ^3/uL (1.6-8.6); Neutrophils % (auto) 86.6 % (37.0-80.0); Platelet Count (auto) 283 10^3/uL (140-450); Red Blood Cells 3.23 10^6/uL (4.0-5.20); Red Cell Distribution Width 15.4 % (11.8-14.3); White Blood Cell 12.2 10^3/uL (4.4-10.8)
[2020-11-30 12:02] LABS: Calcium 8.7 mg/dL (8.5-10.1); Potassium 3.8 mmol/L (3.5-5.1)
[2020-11-30 12:04] LABS: BUN/Creatinine Ratio 25.7
[2020-11-30 12:06] LABS: INR 1.05 (0.9-1.15); Partial Thromboplastin Time 43.9 sec (23.0-31.2)
[2020-11-30 16:00] VITALS: BP 97/62
[2020-11-30] MEDS ORDERED: WARFARIN SODIUM 10 MG TAB PO ONE (17:30)
[2020-11-30] MEDS: ATORVASTATIN 20 MG TAB PO SCH (22:20)
[2020-12-01] VITALS: BP 126/58
[2020-12-01] MEDS: HEPARIN DRIP/D5W 100UNITS/ML 250 ML IV SCH (02:43)
[2020-12-01] MEDS: PIPERACILLIN-TAZOB 3.375GM 100 ML IV SCH ×3 (05:42→22:19)
[2020-12-01 07:04] LABS: Basophils # (auto) 0 10 ^3/uL (0-0.2); Basophils % (auto) 0.1 % (0.0-2.0); Eosinophils # (auto) 0 10 ^3/uL (0-0.8); Hematocrit 28.4 % (36.0-46.0); Hemoglobin 9.5 g/dL (12.2-16.2); Lymphocytes # (auto) 1.4 10 ^3/uL (0.4-5.4); Lymphocytes % (auto) 14.4 % (10.0-50.0); Mean Corpuscular Hemoglobin 29.9 pg (28.0-32.0); Mean Corpuscular Hgb Conc. 33.5 g/dL (32.0-36.0); Mean Corpuscular Volume 89.5 fL (80.0-100.0); Monocytes % (auto) 9.7 % (0.0-12.0); Neutrophils # (auto) 7.6 10 ^3/uL (1.6-8.6); Neutrophils % (auto) 75.8 % (37.0-80.0); Nucleated Red Blood Cells % 0.1 %; Platelet Count (auto) 288 10^3/uL (140-450); Red Blood Cells 3.17 10^6/uL (4.0-5.20); Red Cell Distribution Width 16.1 % (11.8-14.3)
[2020-12-01 07:22] LABS: INR 1.13 (0.9-1.15); Partial Thromboplastin Time 68.2 sec (23.0-31.2)
[2020-12-01 08:00] VITALS: BP 119/59
[2020-12-01] MEDS: AMIODARONE HCL 200 MG TAB PO SCH ×2 (10:36→22:19)
[2020-12-01] MEDS: DexAMETHasone 4 MG TAB PO SCH (10:36)
[2020-12-01] MEDS: ZINC SULFATE 220mg CAP or TAB PO SCH (10:36)
[2020-12-01] MEDS: PANTOPRAZOLE 40 MG TAB PO SCH ×2 (10:37→22:20)
[2020-12-01] MEDS: MAGNESIUM OXIDE 400 MG TAB PO SCH ×2 (10:37→22:20)
[2020-12-01] MEDS: ASCORBIC ACID 1,000 MG TAB PO SCH (10:37)
[2020-12-01] MEDS: CHOLECALCIFEROL (VITD3) 2,000 UNIT CAP PO SCH (10:38)
[2020-12-01] MEDS: ACETAMINOPHEN 325 MG TAB PO PRN (15:11)
[2020-12-01 16:00] VITALS: BP 121/68
[2020-12-01 16:03] LABS: INR 1.23 (0.9-1.15); Partial Thromboplastin Time 65.8 sec (23.0-31.2)
[2020-12-01] MEDS ORDERED: WARFARIN SODIUM 2 MG TAB PO ONE (17:00)
[2020-12-01] MEDS: ATORVASTATIN 20 MG TAB PO SCH (22:20)
[2020-12-02] VITALS: BP 100/53
[2020-12-02 05:49] LABS: Hematocrit 27.7 % (36.0-46.0); Hemoglobin 9.3 g/dL (12.2-16.2); Mean Corpuscular Hemoglobin 29.8 pg (28.0-32.0); Mean Corpuscular Hgb Conc. 33.7 g/dL (32.0-36.0); Mean Corpuscular Volume 88.4 fL (80.0-100.0); Platelet Count (auto) 282 10^3/uL (140-450); Red Blood Cells 3.13 10^6/uL (4.0-5.20); Red Cell Distribution Width 15.7 % (11.8-14.3); White Blood Cell 11.4 10^3/uL (4.4-10.8)
[2020-12-02 06:02] LABS: Basophils % (manual) 0 (0.0-2.0); Blast Cells 0; Eosinophils % (manual) 0 (0-7); Metamyelocytes % 0; Promyelocytes % 0; Reactive Lymphocytes 0
[2020-12-02] MEDS: PIPERACILLIN-TAZOB 3.375GM 100 ML IV SCH (06:02)
[2020-12-02 06:06] LABS: INR 1.29 (0.9-1.15); Partial Thromboplastin Time 31.2 sec (23.0-31.2)
[2020-12-02 06:23] LABS: BUN/Creatinine Ratio 29.2; Calcium 8.6 mg/dL (8.5-10.1)
[2020-12-02 06:34] LABS: Band Neutrophils % (manual) 6; Lymphocytes % (manual) 19 (10.0-50.0); Monocytes % (manual) 1 (0-12); Myelocytes % 7
[2020-12-02] MEDS ORDERED: HEPARIN DRIP/D5W 100UNITS/ML 250 ML IV SCH (07:30)
[2020-12-02] MEDS: HEPARIN DRIP/D5W 100UNITS/ML 250 ML IV SCH (07:51)
[2020-12-02 08:42] VITALS: BP 100/67
[2020-12-02] MEDS: ZINC SULFATE 220mg CAP or TAB PO SCH (09:10)
[2020-12-02] MEDS: AMIODARONE HCL 200 MG TAB PO SCH ×2 (09:11→21:19)
[2020-12-02] MEDS: DexAMETHasone 4 MG TAB PO SCH (09:11)
[2020-12-02] MEDS: ASCORBIC ACID 1,000 MG TAB PO SCH (09:12)
[2020-12-02] MEDS: CHOLECALCIFEROL (VITD3) 2,000 UNIT CAP PO SCH (09:12)
[2020-12-02] MEDS: MAGNESIUM OXIDE 400 MG TAB PO SCH ×2 (09:12→21:19)
[2020-12-02] MEDS: PANTOPRAZOLE 40 MG TAB PO SCH ×2 (09:12→21:19)
[2020-12-02] MEDS ORDERED: levoFLOXacin 500 MG TAB PO ONE (12:15)
[2020-12-02 13:53] LABS: INR 1.42 (0.9-1.15); Partial Thromboplastin Time 59.2 sec (23.0-31.2)
[2020-12-02 16:00] VITALS: BP 125/88
[2020-12-02] MEDS ORDERED: WARFARIN SODIUM 2 MG TAB PO ONE (17:00)
[2020-12-02] MEDS: ATORVASTATIN 20 MG TAB PO SCH (21:19)
[2020-12-02 21:44] LABS: INR 1.53 (0.9-1.15); Partial Thromboplastin Time 60.6 sec (23.0-31.2)
[2020-12-03] VITALS: BP 108/75
[2020-12-03 04:30] LABS: Hematocrit 29.7 % (36.0-46.0); Hemoglobin 9.8 g/dL (12.2-16.2); Mean Corpuscular Hemoglobin 29.5 pg (28.0-32.0); Mean Corpuscular Hgb Conc. 32.8 g/dL (32.0-36.0); Mean Corpuscular Volume 90.1 fL (80.0-100.0); Platelet Count (auto) 288 10^3/uL (140-450); Red Cell Distribution Width 15.9 % (11.8-14.3); White Blood Cell 14.1 10^3/uL (4.4-10.8)
[2020-12-03 04:39] LABS: Basophils % (manual) 0 (0.0-2.0); Blast Cells 0; Eosinophils % (manual) 0 (0-7); Metamyelocytes % 0; Promyelocytes % 0; Reactive Lymphocytes 0
[2020-12-03 04:56] LABS: INR 1.64 (0.9-1.15); Partial Thromboplastin Time 67.2 sec (23.0-31.2)
[2020-12-03 05:28] LABS: Band Neutrophils % (manual) 1; Monocytes % (manual) 5 (0-12)
[2020-12-03 05:30] LABS: Lymphocytes % (manual) 13 (10.0-50.0); Myelocytes % 3
[2020-12-03 08:00] VITALS: BP 115/58
[2020-12-03] MEDS: ZINC SULFATE 220mg CAP or TAB PO SCH (09:49)
[2020-12-03] MEDS: DexAMETHasone 4 MG TAB PO SCH (09:50)
[2020-12-03] MEDS: MAGNESIUM OXIDE 400 MG TAB PO SCH ×2 (09:50→22:09)
[2020-12-03] MEDS: AMIODARONE HCL 200 MG TAB PO SCH ×2 (09:50→22:09)
[2020-12-03] MEDS: ASCORBIC ACID 1,000 MG TAB PO SCH (09:50)
[2020-12-03] MEDS: CHOLECALCIFEROL (VITD3) 2,000 UNIT CAP PO SCH (09:50)
[2020-12-03] MEDS: PANTOPRAZOLE 40 MG TAB PO SCH ×2 (09:50→22:09)
[2020-12-03] MEDS: levoFLOXacin 500 MG TAB PO SCH (09:50)
[2020-12-03] MEDS: HEPARIN DRIP/D5W 100UNITS/ML 250 ML IV SCH (14:42)
[2020-12-03 16:40] VITALS: BP 138/70
[2020-12-03] MEDS ORDERED: WARFARIN SODIUM 2 MG TAB PO ONE (17:00)
[2020-12-03] MEDS: ATORVASTATIN 20 MG TAB PO SCH (22:09)
[2020-12-04] VITALS: BP 107/57
[2020-12-04 05:58] LABS: INR 1.97 (0.9-1.15)
[2020-12-04 06:00] LABS: Partial Thromboplastin Time 107.9 sec (23.0-31.2)
[2020-12-04] MEDS: HEPARIN DRIP/D5W 100UNITS/ML 250 ML IV SCH (07:01)
[2020-12-04 08:00] VITALS: BP 121/72
[2020-12-04] MEDS ORDERED: DexAMETHasone 4 MG TAB PO SCH (10:00)
[2020-12-04] MEDS: AMIODARONE HCL 200 MG TAB PO SCH ×2 (10:31→21:12)
[2020-12-04] MEDS: ZINC SULFATE 220mg CAP or TAB PO SCH (10:31)
[2020-12-04] MEDS: ASCORBIC ACID 1,000 MG TAB PO SCH (10:32)
[2020-12-04] MEDS: PANTOPRAZOLE 40 MG TAB PO SCH ×2 (10:32→21:13)
[2020-12-04] MEDS: levoFLOXacin 500 MG TAB PO SCH (10:32)
[2020-12-04] MEDS: MAGNESIUM OXIDE 400 MG TAB PO SCH ×2 (10:32→21:13)
[2020-12-04] MEDS: CHOLECALCIFEROL (VITD3) 2,000 UNIT CAP PO SCH (10:33)
[2020-12-04 14:16] LABS: INR 2.05 (0.9-1.15)
[2020-12-04 14:23] LABS: Partial Thromboplastin Time 77.2 sec (23.0-31.2)
[2020-12-04 16:00] VITALS: BP 128/63
[2020-12-04] MEDS: ATORVASTATIN 20 MG TAB PO SCH (21:13)
[2020-12-04 22:51] LABS: INR 2.07 (0.9-1.15); Partial Thromboplastin Time 55.9 sec (23.0-31.2)
[2020-12-05] VITALS: BP 123/50
[2020-12-05 04:25] LABS: INR 2.16 (0.9-1.15); Partial Thromboplastin Time 48.6 sec (23.0-31.2)
[2020-12-05 04:31] LABS: Hematocrit 29.5 % (36.0-46.0); Hemoglobin 9.8 g/dL (12.2-16.2); Mean Corpuscular Hemoglobin 30.1 pg (28.0-32.0); Mean Corpuscular Hgb Conc. 33.2 g/dL (32.0-36.0); Mean Corpuscular Volume 90.6 fL (80.0-100.0); Platelet Count (auto) 287 10^3/uL (140-450); Red Blood Cells 3.25 10^6/uL (4.0-5.20); Red Cell Distribution Width 16.1 % (11.8-14.3); White Blood Cell 13.1 10^3/uL (4.4-10.8)
[2020-12-05 04:33] LABS: Band Neutrophils % (manual) 0; Basophils % (manual) 0 (0.0-2.0); Blast Cells 0; Eosinophils % (manual) 0 (0-7); Promyelocytes % 0; Reactive Lymphocytes 0
[2020-12-05 06:54] LABS: Lymphocytes % (manual) 15 (10.0-50.0); Metamyelocytes % 1; Monocytes % (manual) 6 (0-12); Myelocytes % 2
[2020-12-05 08:00] VITALS: BP_SYST 108; BP_SYST 125; BP_DIAS 51; BP_DIAS 73
[2020-12-05] MEDS: levoFLOXacin 500 MG TAB PO SCH (09:31)
[2020-12-05] MEDS: MAGNESIUM OXIDE 400 MG TAB PO SCH (09:31)
[2020-12-05] MEDS: ZINC SULFATE 220mg CAP or TAB PO SCH (09:31)
[2020-12-05] MEDS: AMIODARONE HCL 200 MG TAB PO SCH (09:31)
[2020-12-05] MEDS: CHOLECALCIFEROL (VITD3) 2,000 UNIT CAP PO SCH (09:32)
[2020-12-05] MEDS: ASCORBIC ACID 1,000 MG TAB PO SCH (09:32)
[2020-12-05] MEDS: PANTOPRAZOLE 40 MG TAB PO SCH (09:32)
[2020-12-05] MEDS: HEPARIN DRIP/D5W 100UNITS/ML 250 ML IV SCH (10:50)
[2020-12-05 11:10] LABS: INR 2.3 (0.9-1.15); Partial Thromboplastin Time 62.8 sec (23.0-31.2)
[2020-12-05 14:00] VITALS: BP 99/54
[2020-12-05] MEDS ORDERED: WARFARIN SODIUM 2 MG TAB PO ONE (17:00)
== END 2020-12-05 15:50 | disposition home or self-care (01) | DRG 870 ==
LOC: EDBD 09:39 → ER 09:39 → OVERFLOW 09:40 → ICU WEST 11-23 23:39 → TELE-EAST 11-29 16:15
PROVIDERS: ADMIT Internal Medicine; ATTEND Internal Medicine
PROC: 30233K1 Transfusion of Nonautologous Frozen Plasma into Peripheral Vein, Percutaneous Approach (ICD-10-PCS; principal; 2020-11-21)
PROC: 5A1955Z Respiratory Ventilation, Greater than 96 Consecutive Hours (ICD-10-PCS; 2020-11-21)
PROC: XW033E5 Introduction of Remdesivir Anti-infective into Peripheral Vein, Percutaneous Approach, New Technology Group 5 (ICD-10-PCS; 2020-11-21)
PROC: 0BH17EZ Insertion of Endotracheal Airway into Trachea, Via Natural or Artificial Opening (ICD-10-PCS; 2020-11-21)
PROC: 5A12012 Performance of Cardiac Output, Single, Manual (ICD-10-PCS; 2020-11-21)
PROC: XW13325 Transfusion of Convalescent Plasma (Nonautologous) into Peripheral Vein, Percutaneous Approach, New Technology Group 5 (ICD-10-PCS; 2020-11-27)
DX: A41.89 Other specified sepsis (principal); I21.4 Non-ST elevation (NSTEMI) myocardial infarction; I46.9 Cardiac arrest, cause unspecified; I49.01 Ventricular fibrillation; J12.82 Pneumonia due to coronavirus disease 2019; J96.01 Acute respiratory failure with hypoxia; J96.02 Acute respiratory failure with hypercapnia; N17.0 Acute kidney failure with tubular necrosis; U07.1 COVID-19; J69.0 Pneumonitis due to inhalation of food and vomit; I50.21 Acute systolic (congestive) heart failure; E87.2 Acidosis; I47.2 Ventricular tachycardia; D68.9 Coagulation defect, unspecified; Z68.41 Body mass index [BMI] 40.0-44.9, adult; Z99.11 Dependence on respirator [ventilator] status; D63.8 Anemia in other chronic diseases classified elsewhere; E66.01 Morbid (severe) obesity due to excess calories; E87.6 Hypokalemia; I35.1 Nonrheumatic aortic (valve) insufficiency; I49.3 Ventricular premature depolarization; R65.20 Severe sepsis without septic shock; I11.0 Hypertensive heart disease with heart failure; R31.29 Other microscopic hematuria; Z79.01 Long term (current) use of anticoagulants; Z79.899 Other long term (current) drug therapy; Z86.73 Personal history of transient ischemic attack (TIA), and cerebral infarction without residual deficits; Z90.710 Acquired absence of both cervix and uterus; Z95.2 Presence of prosthetic heart valve
CPT/HCPCS: 36415; 36600; 70450; 71045; 71250; 74176; 76700; 80048; 80053; 80307; 81001; 82150; 82533; 82550; 82728; 82805; 82962; 83605; 83615; 83690; 83735; 83880; 84100; 84132; 84443; 84484; 85007; 85014; 85018; 85025; 85027; 85610; 85730; 86141; 86850; 86900; 86901; 87040; 87077; 87081; 87186; 87426; 93005; 93306; 94002; 94003; 96365; 96366; 96367; 96368; 96372; 96375; 96376; 99291; C9113; G0378; J0696; J1100; J1956; J2001; J2250; J2543; J3430; J3490; J7060

== ENCOUNTER 2021-02-06 15:20 | Emergency (ER) | payer BC ==
[~2021-02-06] VITALS: Ht 160 cm; Wt 71.2 kg
[~2021-02-06 15:20] MED LIST: LISI-275 PO; METO-169 PO; WARF6TAB21 PO
[2021-02-06 15:59] VITALS: BP 160/66
[2021-02-06 16:01] LABS: Basophils # (auto) 0 10 ^3/uL (0-0.2); Eosinophils # (auto) 0.2 10 ^3/uL (0-0.8); Eosinophils % (auto) 4.5 % (0.0-7.0); Hematocrit 39.1 % (36.0-46.0); Hemoglobin 12.9 g/dL (12.2-16.2); Lymphocytes # (auto) 1.5 10 ^3/uL (0.4-5.4); Lymphocytes % (auto) 31.3 % (10.0-50.0); Mean Corpuscular Hemoglobin 30.8 pg (28.0-32.0); Mean Corpuscular Volume 93.4 fL (80.0-100.0); Monocytes # (auto) 0.5 10 ^3/uL (0-1.3); Monocytes % (auto) 10.1 % (0.0-12.0); Neutrophils # (auto) 2.5 10 ^3/uL (1.6-8.6); Neutrophils % (auto) 53.1 % (37.0-80.0); Nucleated Red Blood Cells % 0.2 %; Platelet Count (auto) 202 10^3/uL (140-450); Red Blood Cells 4.19 10^6/uL (4.0-5.20); Red Cell Distribution Width 15.5 % (11.8-14.3); White Blood Cell 4.7 10^3/uL (4.4-10.8)
[2021-02-06 16:32] LABS: INR 5.12 (0.9-1.15)
== END 2021-02-06 17:02 | disposition home or self-care (01) ==
LOC: ER 15:20
DX: N93.9 Abnormal uterine and vaginal bleeding, unspecified (principal); D59.2 Drug-induced nonautoimmune hemolytic anemia; I10 Essential (primary) hypertension; Z90.710 Acquired absence of both cervix and uterus; Z79.01 Long term (current) use of anticoagulants; Z91.040 Latex allergy status
CPT/HCPCS: 36415; 85025; 85610; 85730

== ENCOUNTER 2021-04-24 16:37 | Emergency (ER) | payer SELFPAY ==
[~2021-04-24] VITALS: Ht 172.7 cm; Wt 113.4 kg
[~2021-04-24 16:37] MED LIST changes: -METO-169 PO; +METO-289 PO
[2021-04-24] MEDS ORDERED: cloNIDine HCL 0.1 MG TAB PO ONE (17:00)
[2021-04-24] MEDS ORDERED: HYDROcodone-ACET 10/325MG TAB PO ONE (17:00)
[2021-04-24 17:07] LABS: Basophils # (auto) 0.1 10 ^3/uL (0-0.2); Basophils % (auto) 1.2 % (0.0-2.0); Eosinophils # (auto) 0.3 10 ^3/uL (0-0.8); Eosinophils % (auto) 4.3 % (0.0-7.0); Hematocrit 40.1 % (36.0-46.0); Hemoglobin 13.5 g/dL (12.2-16.2); Lymphocytes # (auto) 1.3 10 ^3/uL (0.4-5.4); Lymphocytes % (auto) 19.7 % (10.0-50.0); Mean Corpuscular Hemoglobin 30.3 pg (28.0-32.0); Mean Corpuscular Hgb Conc. 33.7 g/dL (32.0-36.0); Mean Corpuscular Volume 90.1 fL (80.0-100.0); Monocytes # (auto) 0.4 10 ^3/uL (0-1.3); Monocytes % (auto) 6.6 % (0.0-12.0); Neutrophils # (auto) 4.4 10 ^3/uL (1.6-8.6); Neutrophils % (auto) 68.2 % (37.0-80.0); Nucleated Red Blood Cells % 0.2 %; Platelet Count (auto) 211 10^3/uL (140-450); Red Blood Cells 4.45 10^6/uL (4.0-5.20); Red Cell Distribution Width 15.1 % (11.8-14.3); White Blood Cell 6.5 10^3/uL (4.4-10.8)
[2021-04-24 17:24] LABS: INR 2.25 (0.9-1.15); Partial Thromboplastin Time 38.4 sec (23.0-31.2)
[2021-04-24 17:39] LABS: Albumin 3.3 g/dL (3.4-5.0); Anion Gap 6 (5-15); Calcium 8.6 mg/dL (8.5-10.1); Carbon Dioxide 25 mmol/L (21-32); Chloride 111 mmol/L (98-107); Glucose 117 mg/dL (74-106); Potassium 3.7 mmol/L (3.5-5.1); Sodium 142 mmol/L (136-145)
[2021-04-24 17:45] LABS: Alanine Aminotransferase 45 U/L (13-56); Alkaline Phosphatase 101 U/L (45-117); Aspartate Aminotransferase 41 U/L (15-37); Bilirubin, Total 0.4 mg/dL (0.2-1.0); GFR African American 97 mL/min; GFR Non-African American 80 mL/min; Total Protein 7.7 g/dL (6.4-8.2)
[2021-04-24 17:59] LABS: BUN/Creatinine Ratio 22.8; Blood Urea Nitrogen 18 mg/dL (7-18)
[2021-04-24 18:34] VITALS: BP 158/63
== END 2021-04-24 19:01 | disposition home or self-care (01) ==
LOC: EDBD 16:37 → ER 16:45
DX: R04.0 Epistaxis (principal); I10 Essential (primary) hypertension; Z90.710 Acquired absence of both cervix and uterus; Z79.899 Other long term (current) drug therapy
CPT/HCPCS: 30901; 36415; 80053; 84484; 85025; 85610; 85730

== ENCOUNTER 2021-04-25 15:43 | Emergency (ER) | payer SELFPAY ==
[~2021-04-25] VITALS: Ht 160 cm; Wt 110.7 kg
[2021-04-25 15:53] VITALS: BP 144/81
== END 2021-04-25 16:32 | disposition home or self-care (01) ==
LOC: ER 15:43
DX: Z45.89 Encounter for adjustment and management of other implanted devices (principal); R04.0 Epistaxis; I10 Essential (primary) hypertension

== ENCOUNTER 2021-04-26 15:17 | Emergency (ER) | payer SELFPAY ==
[~2021-04-26] VITALS: Ht 160 cm; Wt 110.7 kg
[2021-04-26 15:30] VITALS: BP 126/70
== END 2021-04-26 17:39 | disposition left against medical advice (07) ==
LOC: ER 15:17
DX: R04.0 Epistaxis (principal); Z53.21 Procedure and treatment not carried out due to patient leaving prior to being seen by health care provider

== ENCOUNTER 2024-03-17 11:31 | Emergency (ER) | payer BC ==
[~2024-03-17] VITALS: Ht 160 cm; Wt 102.6 kg
[~2024-03-17 11:31] MED LIST changes: +WARF-113 PO; -WARF6TAB21 PO
[2024-03-17 12:53] LABS: Basophils # (auto) 0 10 ^3/uL (0-0.2); Basophils % (auto) 0.7 % (0.0-2.0); Eosinophils # (auto) 0.3 10 ^3/uL (0-0.8); Eosinophils % (auto) 5.6 % (0.0-7.0); Hematocrit 41.7 % (36.0-46.0); Hemoglobin 13.8 g/dL (12.2-16.2); Lymphocytes # (auto) 1.3 10 ^3/uL (0.4-5.4); Lymphocytes % (auto) 22.1 % (10.0-50.0); Mean Corpuscular Volume 90.9 fL (80.0-100.0); Monocytes # (auto) 0.5 10 ^3/uL (0-1.3); Monocytes % (auto) 9.3 % (0.0-12.0); Neutrophils # (auto) 3.6 10 ^3/uL (1.6-8.6); Neutrophils % (auto) 62.3 % (37.0-80.0); Nucleated Red Blood Cells % 0.1 %; Red Blood Cells 4.59 10^6/uL (4.0-5.20); Red Cell Distribution Width 14.9 % (11.8-14.3); White Blood Cell 5.8 10^3/uL (4.4-10.8)
[2024-03-17 13:09] LABS: INR 3.11 (0.9-1.15); Partial Thromboplastin Time 47.8 SEC (24.5-34.5); Prothrombin Time 30.3 sec (9.3-11.8)
[2024-03-17 14:01] LABS: Alanine Aminotransferase 26 U/L (7-40); Albumin 4.1 g/dL (3.2-4.8); Alkaline Phosphatase 97 U/L (46-116); Anion Gap 10 (5-15); Aspartate Aminotransferase 29 U/L (13-40); BUN/Creatinine Ratio 17.9 (10.0-20.0); Bilirubin, Total 0.4 mg/dL (0.2-1.0); Blood Urea Nitrogen 14 mg/dL (9-23); Calcium 9.7 mg/dL (8.7-10.4); Carbon Dioxide 24 mmol/L (20-30); Chloride 108 mmol/L (98-107); Glucose 75 mg/dL (74-106); Sodium 142 mmol/L (136-145); Total Protein 7.8 g/dL (5.7-8.2)
[2024-03-17 14:51] VITALS: BP 146/68; PULSE 53; RESP 18; TEMP 98.3; O2SAT 96
[2024-03-17] MEDS ORDERED: LINICRE EX (14:58)
== END 2024-03-17 15:07 | disposition home or self-care (01) ==
LOC: ER 11:31
DX: M51.36 Other intervertebral disc degeneration, lumbar region (principal); M54.16 Radiculopathy, lumbar region; R07.89 Other chest pain; I10 Essential (primary) hypertension; Z95.1 Presence of aortocoronary bypass graft; Z90.710 Acquired absence of both cervix and uterus; Z79.01 Long term (current) use of anticoagulants; Z79.899 Other long term (current) drug therapy; Z88.8 Allergy status to other drugs, medicaments and biological substances; Z91.040 Latex allergy status
CPT/HCPCS: 36415; 71045; 72100; 80053; 83880; 84484; 85025; 85610; 85730; 93005; 93971

== ENCOUNTER 2024-07-24 12:32 | Emergency (ER) | payer BC ==
[~2024-07-24] VITALS: Ht 160 cm; Wt 110.6 kg
[~2024-07-24 12:32] MED LIST changes: +LINICRE EX
[2024-07-24 14:03] LABS: Basophils # (auto) 0 10 ^3/uL (0-0.2); Basophils % (auto) 0.5 % (0.0-2.0); Eosinophils # (auto) 0.3 10 ^3/uL (0-0.8); Hematocrit 38.4 % (36.0-46.0); Hemoglobin 12.8 g/dL (12.2-16.2); Lymphocytes # (auto) 1.2 10 ^3/uL (0.4-5.4); Lymphocytes % (auto) 20.8 % (10.0-50.0); Mean Corpuscular Hemoglobin 30.6 pg (28.0-32.0); Mean Corpuscular Hgb Conc. 33.4 g/dL (32.0-36.0); Mean Corpuscular Volume 91.5 fL (80.0-100.0); Monocytes # (auto) 0.5 10 ^3/uL (0-1.3); Neutrophils # (auto) 3.7 10 ^3/uL (1.6-8.6); Neutrophils % (auto) 64.7 % (37.0-80.0); Nucleated Red Blood Cells % 0.1 %; Platelet Count (auto) 179 10^3/uL (140-450); Red Cell Distribution Width 15.1 % (11.8-14.3); White Blood Cell 5.7 10^3/uL (4.4-10.8)
[2024-07-24 14:18] LABS: Alanine Aminotransferase 25 U/L (7-40); Albumin 3.8 g/dL (3.2-4.8); Alkaline Phosphatase 106 U/L (46-116); Anion Gap 2 (5-15); Aspartate Aminotransferase 24 U/L (13-40); BUN/Creatinine Ratio 23.9 (10.0-20.0); Blood Urea Nitrogen 16 mg/dL (9-23); Calcium 9.5 mg/dL (8.7-10.4); Carbon Dioxide 29 mmol/L (20-30); Chloride 110 mmol/L (98-107); Glucose 90 mg/dL (74-106); Potassium 3.9 mmol/L (3.5-5.1); Sodium 141 mmol/L (136-145)
[2024-07-24 14:19] LABS: Bilirubin, Total 0.3 mg/dL (0.2-1.0); Total Protein 7.3 g/dL (5.7-8.2)
[2024-07-24 14:27] LABS: CRP High Sensitivity 1.12 mg/dL (<1.0)
[2024-07-24 14:38] LABS: Erythrocyte Sedimentation Rate 19 mm/hr (0-20)
[2024-07-24 14:55] LABS: INR 2.62 (0.9-1.15); Partial Thromboplastin Time 45.3 SEC (24.5-34.5); Prothrombin Time 25.9 sec (9.3-11.8)
[2024-07-24] MEDS: FUROSEMIDE 20 MG TAB PO ONE (15:53)
[2024-07-24 18:15] VITALS: BP 146/77; PULSE 59; RESP 18; TEMP 98.1; O2SAT 95
== END 2024-07-24 18:36 | disposition home or self-care (01) ==
LOC: ER 12:32
DX: M25.562 Pain in left knee (principal); Z79.899 Other long term (current) drug therapy; Z91.040 Latex allergy status; Z88.8 Allergy status to other drugs, medicaments and biological substances
CPT/HCPCS: 36415; 73562; 80053; 83605; 83880; 85025; 85610; 85652; 85730; 86141; 93971

== ENCOUNTER 2025-10-15 08:58 | Emergency (ER) | payer BC ==
[~2025-10-15] VITALS: Ht 160 cm; Wt 107.7 kg
--- NOTE | 2025-10-15 09:18 | ED.PDOC ---
Musculoskeletal HPI Comments This is a 60 year old female presenting to the ED with chief complaint of left arm pain. Patient reports that she has been experiencing left arm pain that radiates both to the back and down her left arm, worsening with movement and activity for the past 4 days. Patient relays that her pain is relieved with elevation. Patient states she has had similar pain in the past prior to her CABG being performed in 2014. Patient notes she is currently on Warfarin. Denies trauma to the arm or recent fall Denies skin color changes around the arm Denies masses around the arm Denies popping/locking/giving out of the arm Denies fever chills night sweats nausea vomiting Denies previous surgeries to the arm nor significant injury Chief Complaint: Upper Extremity Time Seen by MD: 09:15 Primary Care Provider: ALISHA Barrios Notes: Nurses Notes, Medications, Allergies Allergies: Coded Allergies: Diltiazem (Verified Allergy, Unknown, 07/25/19) Latex (Verified Allergy, Unknown, 07/25/19) Home Meds Active Scripts Methocarbamol (Methocarbamol) 500 Mg Tab, 500 MG PO Q8HP PRN for 7 Days, #21 TAB 0 Refills Prov:ALICE GÓMEZ NP 10/15/25 Liniments & Rubs (Thera-Gesic) Cre, 1 APPLIC EX DAILY, #60 CRE Prov:TRAVIS SHAIKH 03/17/24 Reported Medications Lisinopril (Lisinopril) 5 Mg Tab, 1 TAB PO DAILYPRN 11/30/20 Warfarin Sodium (Warfarin Sodium) 6 Mg Tab, 1 TAB PO 11/30/20 Metoprolol Succinate (Metoprolol Succinate Er) 50 Mg Tab, 1 TAB PO DAILYPRN 11/30/20 Information Source: Patient Mode of Arrival: Ambulatory Location: Left Extremity Location: Arm Timing: Days Prehospital treatment: None Severity: Moderate Able to Move Extremity: Yes Bear Weight: Fully Pain: Moderate Mechanism: Spontaneous Circumstances: Spontaneous Onset of Symptoms: Spontaneous Symptoms: Pain DVT Risk Factors: NONE Past Medical History PAST MEDICAL HISTORY: Anxiety, HTN Surgical History: CABG, Hysterectomy 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 OPERATOR 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: No Pertinent LEAD VULCANIZING 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 History Family History Family History: Reviewed,noncontributory to illness Social History Smoker: Non-Smoker Alcohol: Denies ETOH Use Drugs: Denies Drug Use Lives In: Home Constitutional: denies: chills, diaphoresis, fatigue, fever, malaise, sweats, weakness, others EENTM: denies: blurred vision, double vision, ear bleeding, ear discharge, ear drainage, ear pain, ear ringing, eye pain, eye redness, hearing loss, mouth pain, mouth swelling, nasal discharge, nose bleeding, nose congestion, nose pain, photophobia, tearing, throat pain, throat swelling, voice changes, others Respiratory: denies: cough, hemoptysis, orthopnea, SOB at rest, shortness of breath, SOB with excertion, stridor, wheezing, others Cardiovascular: denies: chest pain, dizzy spells, diaphoresis, Dyspnea on exertion, edema, irregular heart beat, left arm pain, lightheadedness, palpitations, PND, syncope, others Gastrointestinal: denies: abdomen distended, abdominal pain, blood streaked bowels, constipated, diarrhea, dysphagia, difficulty swallowing, hematemesis, melena, nausea, poor appetite, poor fluid intake, rectal bleeding, rectal pain, vomiting, others Genitourinary: denies: abnormal vagina bleeding, burning, dyspareunia, dysuria, flank pain, frequency, hematuria, incontinence, pain, , vagina discharge, urgency, others Neurological: denies: dizziness, fainting, headache, left sided numbness, left sided weakness, numbness, paresthesia, pre-existing deficit, right sided numb ness, right sided weakness, seizure, speech problems, tingling, tremors, weakness, others Musculoskeletal: reports: others (Left arm pain); denies: back pain, gout, joint pain, joint swelling, muscle pain, muscle stiffness, neck pain Integumetry: denies: bruises, change in color, change in hair/nails, dryness, laceration, lesions, lumps, rash, wounds, others Allergic/Immunocompromised: denies: Difficulty Healing, Frequent Infections, Hives, Itching, others Hematologic/Lymphatic: denies: anemia, blood clots, easy bleeding, easy bruising, swollen glands, others Endocrine: denies: excessive hunger, excessive sweating, excessive thirst, excessive urination, flushing, intolerance to cold, intolerance to heat, unexplained weight gain, unexplained weight loss, others Psychiatric: denies: anxiety, bipolar disorder, depression, hopeless, panic disorder, schizophrenia, sleepless, suicidal, others All Other Systems: Reviewed and Negative Physical Exam General Appearance: No Apparent Distress, Normal HEENT: Normal ENT Inspection, Pharynx Normal, TMs Normal Neck: Full Range of Motion, Non-Tender, Normal, Normal Inspection Respiratory: Chest Non-Tender, Lungs Clear, No Accessory Muscle Use, No Respiratory Distress, Normal Breath Sounds Cardiovascular: No Edema, No JVD, No Murmur, No Gallop, Normal Peripheral Pulses, Regular Rate/Rhythm Breast Exam: Deferred Gastrointestinal: No Organomegaly, Non Tender, No Pulsatile Mass, Normal Bowel Sounds, Soft Genitalia: Deferred Pelvic: Deferred Rectal: Deferred Extremities: No calf tenderness, Normal capillary refill, Normal inspection, Normal range of motion, Non-tender, No pedal edema Musculoskeletal : Apperance: Normal Neurologic: Alert, property utilization manager II-XII nml as Tested, No Motor Deficits, Normal Affect, Normal Mood, No Sensory Deficits Cerebellar Function: Normal Reflexes: Normal Skin: Dry, Normal Color, Warm Lymphatic: No Adenopathy Was a procedure done? Was a procedure done?: No Differential Diagnosis EXT Differential Diagnosis: Deep Vein Thrombosis, Sprain, Strain X-Ray, Labs, Meds, VS Vital Signs Date Time Temp Pulse Resp B/P (MAP) Pulse Ox O2 Delivery O2 Flow Rate FiO2 10/15/25 09:44 61 17 96 Room Air 10/15/25 09:44 98.4 61 17 109/70 (83) 96 98.4 10/15/25 09:02 98.5 64 17 183/77 94 98.5 X-Ray, Labs, Meds, VS Comment This is a 60 year old female presenting to the ED with chief complaint of left arm pain. Patient arrives alert and oriented, ABC's intact, afebrile, vital signs stable, saturating well in room air ED workup: Defer imaging and lab work for outpatient follow up at this time Disposition: Discharge. Strict return precautions discussed with the patient with full understanding. Supportive care advised (rest, ice, heat, NSAIDs, stretching exercises) Massage muscles with cold pack or ice for 20 minutes 4 times per day. Usually most useful if there is swelling during the first 48 hours Heating pad on the most painful area for 20 minutes to relieve muscle spasm Sleep and the most comfortable sleeping position (usually on the side with knees bent) Light stretching, no strenuous activity, avoid frequent bending, avoid carrying heavy objects Discussed possible benefits of yoga and acupuncture Additional MDM Review of External, Non-ED records: External records reviewed. Discussion with independent historian (EMS, family) history obtained from the patient/parents (if applicable) at bedside Chronic conditions affecting care: None Social determinants of health affecting care: None Consideration of admission (observation or admission): I considered escalation of care to admission for this patient, however given the reassuring workup, the patient is safe for outpatient management. Discussion with the Radiology: No Tests considered but not performed: None Prescription medication considered but not given: None On reevaluation, patient had symptomatic improvement. Patient is stable for discharge at this time. External notes reviewed. Test results and diagnostic imaging interpreted. All diagnostic findings, discharge care, education and instructions provided Follow-up with PCP in 2 to 3 days Patient verbalized understanding and agreed to treatment plan Vital signs stable, afebrile, no acute distress noted Patient ambulatory with strong steady gait Advised to return precautions for any new or worsening symptoms, return to ER immediately for re-evaluation Patient is aware that the purpose of this visit was for an acute medical emergency requiring emergent stabilization. Chronic conditions, including malignancies have not been ruled out. Patient is instructed to follow up with PCP as directed and discharge instructions for continued care and workup. If unable to arrange follow-up, patient is to return to the emergency department for reassessment. Patient (parent or legal guardian if applicable) was given verbal and written discharge instructions and acknowledges understanding. Time of 1ST Reevaluation: 09:25 Reevaluation 1ST: Improved Patient Education/Counseling: Diagnosis, Treatment Family Education/Counseling: No Family Present Departure 1 Departure Time of Disposition: 09:40 Impression: Primary Impression: Arm pain Qualified Codes: M79.602 - Pain in left arm Disposition: 01 HOME / SELF CARE / HOMELESS Condition: Stable e-Prescriptions Methocarbamol (Methocarbamol) 500 Mg Tab 500 MG PO Q8HP PRN for 7 Days, #21 TAB 0 Refills Prov: ALICE GÓMEZ NP 10/15/25 Discharged With: Self Critical Care Note Critical Care Time?: No Stability Stability form required: No Heart Score Heart Score: Heart Score Response (Comments) Value History N/A 0 EKG N/A 0 Age N/A 0 Risk Factors N/A 0 Troponin N/A 0 Total 0 I personally scribed for ALICE GÓMEZ NP ([email or web address]) on 10/15/25 at 09:18. Electronically submitted by Chinedu Funk ([email or web address]). I personally scribed for ALICE GÓMEZ FOOD CRITIC ([email or web address]) on 10/15/25 at 09:34. Electronically submitted by Chinedu Funk ([email or web address]). I personally scribed for ALICE GÓMEZ FOOD CRITIC ([email or web address]) on 10/15/25 at 09:36. Electronically submitted by Chinedu Funk ([email or web address]). ALICE GÓMEZ FOOD CRITIC Oct 15, 2025 09:18
[2025-10-15 09:44] VITALS: BP 109/70; PULSE 61; RESP 17; TEMP 98.4; O2SAT 96
[2025-10-15] MEDS ORDERED: METH-1181 PO (09:48)
== END 2025-10-15 09:50 | disposition home or self-care (01) ==
LOC: ER 08:58
DX: M79.602 Pain in left arm (principal); I10 Essential (primary) hypertension; F41.9 Anxiety disorder, unspecified; Z90.710 Acquired absence of both cervix and uterus; Z91.040 Latex allergy status; Z95.1 Presence of aortocoronary bypass graft; Z79.01 Long term (current) use of anticoagulants